=== PATIENT | female | born 1990 | race Caucasian/White ===

== ENCOUNTER → 2018-09-20 | Outpatient (CLI) | payer BC ==
[~2018-09-20] VITALS: Ht 165.1 cm; Wt 61.2 kg
--- NOTE | 2018-09-20 11:25 | Diagnostic Imaging Report ---
Ultrasound guided needle aspiration Indication: Ultrasound guided biopsy Ultrasound assistance was provided for Dr. Kunz during his aspiration/biopsy of the left lobe of the thyroid. 3 passes were made. Impression: Ultrasound assistance was provided for Dr. Kunz. Dictated by: Dictated on workstation # [id number]
== END ==
LOC: RAD 10:17
PROVIDERS: ATTEND Otolaryngology Otolaryngology/Facial Plastic Surgery
DX: E04.1 Nontoxic single thyroid nodule (principal)

== ENCOUNTER → 2019-01-10 | Outpatient (CLI) | payer BC ==
[~2019-01-10] MED LIST: CATHETER FLUSH 10 ML SYR IV PRN
--- NOTE | 2019-01-10 13:45 | Diagnostic Imaging Report ---
EXAMINATION: Hepatobiliary scan with ejection fraction. INDICATION: Abdominal pain. TECHNIQUE: This study was performed following administration of 4.94 mCi of 99-M technetium Choletec. One can of Ensure was also used for the calculation of the ejection fraction. COMPARISON: There are no prior studies available for comparison. FINDINGS: There is uptake of the radiotracer by the gallbladder for 30 minutes. This would weigh against the diagnosis of acute cholecystitis. There is also extension of the radiotracer into the small bowel indicating that the common bile duct is not obstructed. The ejection fraction is 65% (Normal greater than 35%). IMPRESSION: 1. There is no evidence for acute cholecystitis or for obstruction of the common bile duct. 2. The ejection fraction is 65% and within normal limits. Dictated by: Dictated on workstation # [id number]
== END ==
LOC: CARD 09:37
PROVIDERS: ATTEND Family Medicine
DX: R10.9 Unspecified abdominal pain (principal)
CPT/HCPCS: 78227

== ENCOUNTER → 2019-01-10 | Outpatient (CLI) | payer BC ==
--- NOTE | 2019-01-10 19:53 | Diagnostic Imaging Report ---
Ultrasound-guided thyroid aspiration Ultrasound assistance was provided for Dr. Kunz during his aspiration of a thyroid nodule. On the previous thyroid aspiration exam of 09/20/2018, 3 passes were made. The results of that biopsy are not known to me. On this exam, 3 more passes were made into the left lobe of the thyroid. IMPRESSION: Ultrasound assistance was provided for the left lobe of the thyroid aspiration. Dictated by: Dictated on workstation # [id number]
== END ==
LOC: RAD 09:41
PROVIDERS: ATTEND Otolaryngology Otolaryngology/Facial Plastic Surgery
DX: E04.1 Nontoxic single thyroid nodule (principal)
CPT/HCPCS: 76942